=== PATIENT | female | born 1940 | race African-American/Black ===

== ENCOUNTER 2016-06-14 12:03 | Inpatient (IN) | payer MEDICARE, MEDICAID ==
[~2016-06-14] VITALS: Ht 142.2 cm; Wt 54.4 kg
[~2016-06-14 12:03] MED LIST: AMLO5TAB4 PO; LISI40TA4 PO
[2016-06-14] MEDS ORDERED: HYDRALAZINE 20MG/ML VIAL IV ONE (14:00)
[2016-06-14 14:21] LABS: BASOPHILS % 0.7 % (0.0-2.0); EOSINOPHILS % 0.8 % (0.0-5.0); HEMATOCRIT. 41.1 % (36.0-48.0); LYMPHOCYTES % 29.7 % (20.0-50.0); MEAN CORPUSCULAR HEMOGLOBIN 29.6 pg (28.0-32.0); MEAN PLATELET VOLUME 8.7 fl (7.4-10.4); MONOCYTES % 9.3 % (2.0-8.0); NEUTROPHILS % 59.5 % (40.0-76.0); PLATELET 141 x1000/uL (130-400); RED BLOOD CELL COUNT 4.73 mill/uL (4.2-5.4); WHITE BLOOD COUNT 4.9 x1000/uL (4.5-11.0)
[2016-06-14] MEDS ORDERED: ERYTHROMYCIN BASE 0.5% OPHTH OINT 3.5GM BOTHEYE ONE (14:30)
[2016-06-14 14:32] LABS: PROTHROMBIN TIME 10.8 sec
[2016-06-14 14:38] LABS: ALANINE AMINOTRANSFERASE 17 IU/L (13-61); ALBUMIN 3.8 g/dL (3.4-5.0); ANION GAP 10; CALCIUM 9.6 mg/dL (8.5-10.1); CARBON DIOXIDE 30 mEq/L (21-32); CHLORIDE 109 mEq/L (98-107); INDEX HEMOLYSI 1 (1-3); INDEX ICTERIC 1 (1-4); INDEX LIPEMIC 1 (1-3); NT PRO B-TYPE NATRIURETIC PEP 289 pg/mL (5-125); TROPONIN I 0.14 ng/mL (0.00-0.04); UREA NITROGEN BLOOD 15 mg/dL (7-21); eGFR > 60 mL/min (>60)
[2016-06-14 21:00] VITALS: BP 167/86
[2016-06-14 22:00] VITALS: BP 167/68
[2016-06-14] MEDS ORDERED: CLONIDINE 0.1MG TABLET PO NR (22:15)
[2016-06-15] VITALS (15 sets, daily range): BP systolic 83–156; BP diastolic 50–129
[2016-06-15] MEDS ORDERED: CLONIDINE 0.2MG TABLET PO NR (00:45)
[2016-06-15] MEDS ORDERED: BENAZEPRIL 5MG TABLET PO NR (00:45)
[2016-06-15] MEDS ORDERED: HYDRALAZINE HCL 50MG TABLET PO NR (00:45)
[2016-06-15] MEDS: AMLODIPINE 5MG TABLET PO SCH ×3 (01:41→21:00)
[2016-06-15] MEDS: CLONIDINE 0.2MG TABLET PO SCH ×3 (01:42→17:11)
[2016-06-15] MEDS ORDERED: HYDRALAZINE HCL 50MG TABLET PO SCH (06:00)
[2016-06-15] MEDS: BENAZEPRIL 5MG TABLET PO SCH ×2 (09:00→17:11)
[2016-06-15 10:09] LABS: CHLORIDE 109 mEq/L (98-107); INDEX HEMOLYSI 1 (1-3); INDEX ICTERIC 1 (1-4); INDEX LIPEMIC 1 (1-3)
[2016-06-15 10:10] LABS: HEMATOCRIT 38.6 % (36.0-48.0); HEMOGLOBIN 13.2 g/dL (12.0-16.0); MEAN CORPUSCULAR HEMOGLOBIN 29.6 pg (28.0-32.0); MEAN CORPUSCULAR HGB CONC 34.1 g/dL (31.0-37.0); MEAN CORPUSCULAR VOLUME 86.7 fL (81.0-99.0); PLATELET 141 x1000/uL (130-400); RED BLOOD CELL COUNT 4.46 mill/uL (4.2-5.4); RED CELL DISTRIBUTION WIDTH 14.1 % (11.6-14.6); WHITE BLOOD COUNT 4.9 x1000/uL (4.5-11.0)
[2016-06-15 10:15] LABS: ANION GAP 12; CARBON DIOXIDE 26 mEq/L (21-32); UREA NITROGEN BLOOD 19 mg/dL (7-21); eGFR > 60 mL/min (>60)
[2016-06-15] MEDS: ACETAMINOPHEN 325MG TABLET PO PRN (11:56)
[2016-06-16] VITALS (10 sets, daily range): BP systolic 98–157; BP diastolic 46–90
[2016-06-16 07:16] LABS: CALCIUM 9.1 mg/dL (8.5-10.1)
[2016-06-16 07:38] LABS: HEMATOCRIT 36.6 % (36.0-48.0); HEMOGLOBIN 12.4 g/dL (12.0-16.0); MEAN CORPUSCULAR HEMOGLOBIN 29.5 pg (28.0-32.0); MEAN CORPUSCULAR HGB CONC 33.8 g/dL (31.0-37.0); MEAN CORPUSCULAR VOLUME 87.1 fL (81.0-99.0); PLATELET 138 x1000/uL (130-400); RED CELL DISTRIBUTION WIDTH 14.1 % (11.6-14.6); WHITE BLOOD COUNT 4.3 x1000/uL (4.5-11.0)
[2016-06-16] MEDS: CLONIDINE 0.2MG TABLET PO SCH ×2 (08:55→09:00)
[2016-06-16] MEDS: BENAZEPRIL 5MG TABLET PO SCH (08:55)
[2016-06-16] MEDS: AMLODIPINE 5MG TABLET PO SCH (08:56)
[2016-06-16] MEDS: ACETAMINOPHEN 325MG TABLET PO PRN (09:31)
== END 2016-06-16 16:20 | disposition home health service (06) | DRG 305 ==
LOC: ER 13:11 → 3WST 17:14
PROVIDERS: ADMIT Internal Medicine; ATTEND Internal Medicine
DX: I16.1 Hypertensive emergency (principal); I67.4 Hypertensive encephalopathy; I24.9 Acute ischemic heart disease, unspecified; L51.1 Stevens-Johnson syndrome; I10 Essential (primary) hypertension; H26.9 Unspecified cataract; H54.0 Blindness, both eyes; F32.9 Major depressive disorder, single episode, unspecified; Z94.7 Corneal transplant status; Z88.6 Allergy status to analgesic agent; Z88.1 Allergy status to other antibiotic agents; Z88.8 Allergy status to other drugs, medicaments and biological substances; Z90.49 Acquired absence of other specified parts of digestive tract; Z90.710 Acquired absence of both cervix and uterus; Z91.14 Patient's other noncompliance with medication regimen; Z86.73 Personal history of transient ischemic attack (TIA), and cerebral infarction without residual deficits
CPT/HCPCS: 36415; 70450; 71010; 80048; 80053; 83880; 84484; 85025; 85027; 85610; 93005; 96374; 99285; J0360

== ENCOUNTER 2018-12-25 21:10 | Emergency (ER) | payer MEDICARE, MEDICAID ==
[~2018-12-25] VITALS: Ht 152.4 cm; Wt 64.0 kg
[~2018-12-25 21:10] MED LIST changes: -LISI40TA4 PO; +MULT-1146 PO
[2018-12-25] MEDS ORDERED: SODIUM CHLORIDE 0.9% 1,000 ML IV ONE (23:06)
[2018-12-25] MEDS ORDERED: KETOROLAC 15MG/ML VIAL IV ONE (23:15)
[2018-12-25 23:33] LABS: CHLORIDE 110 mEq/L (98-107)
[2018-12-25 23:35] LABS: BASOPHILS % 0.7 % (0.0-2.0); EOSINOPHILS % 2.6 % (0.0-5.0); HEMATOCRIT. 40.7 % (36.0-48.0); HEMOGLOBIN. 13.9 g/dL (12.0-16.0); LYMPHOCYTES % 29.9 % (20.0-50.0); MEAN CORPUSCULAR HEMOGLOBIN 29.2 pg (28.0-32.0); MEAN CORPUSCULAR VOLUME 85.4 fL (81.0-99.0); MEAN PLATELET VOLUME 8.7 fl (7.4-10.4); NEUTROPHILS % 53.8 % (40.0-76.0); PLATELET 217 x1000/uL (130-400); RED BLOOD CELL COUNT 4.76 mill/uL (4.2-5.4); RED CELL DISTRIBUTION WIDTH 15.1 % (11.6-14.6)
[2018-12-26 07:05] VITALS: BP 124/77
== END 2018-12-26 07:08 ==
LOC: ER 21:10
DX: R05 Cough (principal); R07.89 Other chest pain; J44.9 Chronic obstructive pulmonary disease, unspecified; M19.90 Unspecified osteoarthritis, unspecified site; F32.9 Major depressive disorder, single episode, unspecified; I10 Essential (primary) hypertension; L51.1 Stevens-Johnson syndrome; Z86.73 Personal history of transient ischemic attack (TIA), and cerebral infarction without residual deficits; Z88.6 Allergy status to analgesic agent; Z88.8 Allergy status to other drugs, medicaments and biological substances
CPT/HCPCS: 36415; 71045; 71250; 80053; 83605; 83880; 84484; 85025; 87040; 93005; 96374; 99284; J1885; J7030

== ENCOUNTER 2019-01-31 22:08 | Emergency (ER) | payer MEDICARE, MEDICAID ==
[~2019-01-31] VITALS: Ht 152.4 cm; Wt 63.2 kg
[2019-01-31] MEDS ORDERED: VISCOUS LIDOCAINE 2% 15 ML UDC MM STA (23:23)
[2019-01-31] MEDS ORDERED: BENZONATATE 200MG CAPSULE PO ONE (23:30)
[2019-02-01 04:57] VITALS: BP 142/82
== END 2019-02-01 05:00 | disposition home or self-care (01) ==
LOC: ER 22:08
DX: M79.10 Myalgia, unspecified site (principal); R05 Cough; I10 Essential (primary) hypertension; L51.1 Stevens-Johnson syndrome; H54.62 Unqualified visual loss, left eye, normal vision right eye; Z88.6 Allergy status to analgesic agent
CPT/HCPCS: 71045; 99283

== ENCOUNTER 2019-04-04 18:23 | Inpatient (IN) | payer MEDICARE, MEDICAID ==
[~2019-04-04] VITALS: Ht 157.5 cm; Wt 71.2 kg
[2019-04-04] MEDS ORDERED: AZITHROMYCIN 500 MG in DEXT 5% WATER 250 ML IV SCH (19:00)
[2019-04-04] MEDS ORDERED: CEFTRIAXONE 1 G PREMIX 50 ML IV ONE (19:00)
[2019-04-04] MEDS ORDERED: METHYLPREDNISOLONE SOD SUCC 125 MG/2 ML VIAL IV STA (19:00)
[2019-04-04] MEDS ORDERED: IPRATROPIUM/ALBUTEROL 0.5-3(2.5)MG/3ML NEB HHN ONE (19:00)
[2019-04-04 19:42] LABS: CHLORIDE 110 mEq/L (98-107)
[2019-04-04 19:43] LABS: BASOPHILS % 0.8 % (0.0-2.0); EOSINOPHILS % 2.2 % (0.0-5.0); HEMATOCRIT. 39.8 % (36.0-48.0); HEMOGLOBIN. 13.4 g/dL (12.0-16.0); LYMPHOCYTES % 34.8 % (20.0-50.0); MEAN CORPUSCULAR HEMOGLOBIN 28.8 pg (28.0-32.0); MEAN CORPUSCULAR VOLUME 85.4 fL (81.0-99.0); MEAN PLATELET VOLUME 8.5 fl (7.4-10.4); MONOCYTES % 13.4 % (2.0-8.0); NEUTROPHILS % 48.8 % (40.0-76.0); PLATELET 186 x1000/uL (130-400); RED BLOOD CELL COUNT 4.66 mill/uL (4.2-5.4); RED CELL DISTRIBUTION WIDTH 15.2 % (11.6-14.6)
[2019-04-04 19:49] LABS: PARTIAL THROMBOPLASTIN TIME 27.1 sec (23.4-31.0); PROTHROMBIN TIME 10.4 sec (9.6-11.0)
[2019-04-04] MEDS ORDERED: ONDANSETRON HCL 4MG/2ML INJ IV ONE (22:15)
[2019-04-04] MEDS ORDERED: MORPHINE SULFATE 2 MG/ML CPJ (NOT FOR IM USE) IV ONE (22:15)
[2019-04-04 22:21] LABS: CLARITY URINE CLEAR (CLEAR); COLOR URINE YELLOW (YELLOW); KETONES URINE NEGATIVE (NEGATIVE); LEUKOCYTE ESTERASE URINE NEGATIVE (NEGATIVE); NITRITE URINE NEGATIVE (NEGATIVE); OCCULT BLOOD URINE NEGATIVE (NEGATIVE); PH URINE 5.5 (4.5-8.0); PROTEIN URINE NEGATIVE (NEGATIVE); UROBILINOGEN URINE 0.2 E.U./dL (0.2-1.0)
[2019-04-04 23:45] VITALS: BP 149/86
[2019-04-05] MEDS ORDERED: CEFTRIAXONE 1 G PREMIX 50 ML IV SCH (00:30)
[2019-04-05] MEDS ORDERED: PROMETHAZINE/DEXTROMETHORPHAN 6.25-15MG/5ML BOTTLE 120ML PO PRN (00:30)
[2019-04-05] MEDS ORDERED: DIPHENHYDRAMINE 25MG CAPSULE PO PRN (00:30)
[2019-04-05] MEDS ORDERED: HYDR-4134 PO (01:09)
[2019-04-05] MEDS ORDERED: D-ME473S8 MT (01:09)
[2019-04-05] MEDS ORDERED: CHOL100034 PO (01:14)
[2019-04-05] MEDS ORDERED: IBUP-2029 PO (01:14)
[2019-04-05] MEDS ORDERED: BENZ1LOZ60 MM (01:14)
[2019-04-05] MEDS ORDERED: CIPHCO EACH EAR (01:14)
[2019-04-05] MEDS ORDERED: TOPUD PO (01:14)
[2019-04-05] MEDS ORDERED: POTASSIUM CHLORIDE 20MEQ TABLET SR PO NR (02:00)
[2019-04-05 04:00] VITALS: BP 119/74
[2019-04-05] MEDS: IPRATROPIUM/ALBUTEROL 0.5-3(2.5)MG/3ML NEB HHN SCH ×5 (05:12→21:29)
[2019-04-05] MEDS: BENZONATATE 200MG CAPSULE PO SCH ×3 (05:16→21:09)
[2019-04-05] MEDS: METHYLPREDNISOLONE SOD SUCC 40 MG/ML VIAL IV SCH ×3 (05:16→21:09)
[2019-04-05 05:31] LABS: HEMATOCRIT 40.1 % (36.0-48.0); HEMOGLOBIN 13.4 g/dL (12.0-16.0); MEAN CORPUSCULAR HEMOGLOBIN 28.6 pg (28.0-32.0); MEAN CORPUSCULAR VOLUME 85.7 fL (81.0-99.0); PLATELET 194 x1000/uL (130-400); RED BLOOD CELL COUNT 4.68 mill/uL (4.2-5.4); RED CELL DISTRIBUTION WIDTH 14.7 % (11.6-14.6)
[2019-04-05 05:42] LABS: CHLORIDE 110 mEq/L (98-107)
[2019-04-05 05:57] LABS: CREATINE KINASE MB FRACTION 1.6 ng/mL (0.5-3.6)
[2019-04-05 08:00] VITALS: BP 138/92
[2019-04-05] MEDS: CHOLECALCIFEROL (D3) 1000 UNIT TABLET PO SCH (08:44)
[2019-04-05] MEDS: POTASSIUM CHLORIDE 20MEQ TABLET SR PO SCH ×3 (08:44→16:51)
[2019-04-05] MEDS: ENOXAPARIN 40MG/0.4ML SYR SUBCUT SCH (08:45)
[2019-04-05] MEDS: AMLODIPINE 10MG TABLET PO SCH (08:45)
[2019-04-05 12:00] VITALS: BP 116/63
[2019-04-05 14:12] LABS: CREATINE KINASE MB FRACTION 2.1 ng/mL (0.5-3.6)
[2019-04-05 16:00] VITALS: BP 124/81
[2019-04-05] MEDS: ACETAMINOPHEN 325MG TABLET PO PRN (16:51)
[2019-04-05 19:44] LABS: CREATINE KINASE MB FRACTION 2.1 ng/mL (0.5-3.6)
[2019-04-05 20:00] VITALS: BP 133/84
[2019-04-05] MEDS: CEFTRIAXONE 1 G PREMIX 50 ML IV SCH (21:08)
[2019-04-06] VITALS: BP 128/70
[2019-04-06 04:00] VITALS: BP 134/88
[2019-04-06] MEDS: IPRATROPIUM/ALBUTEROL 0.5-3(2.5)MG/3ML NEB HHN SCH ×6 (04:34→21:03)
[2019-04-06] MEDS: BENZONATATE 200MG CAPSULE PO SCH ×3 (05:38→22:41)
[2019-04-06] MEDS: METHYLPREDNISOLONE SOD SUCC 40 MG/ML VIAL IV SCH ×2 (05:38→13:14)
[2019-04-06 07:03] LABS: CHLORIDE 112 mEq/L (98-107)
[2019-04-06 07:14] LABS: HEMATOCRIT 36.7 % (36.0-48.0); HEMOGLOBIN 12.3 g/dL (12.0-16.0); MEAN CORPUSCULAR HEMOGLOBIN 28.7 pg (28.0-32.0); MEAN CORPUSCULAR VOLUME 85.8 fL (81.0-99.0); PLATELET 191 x1000/uL (130-400); RED BLOOD CELL COUNT 4.28 mill/uL (4.2-5.4); RED CELL DISTRIBUTION WIDTH 15.1 % (11.6-14.6)
[2019-04-06 08:00] VITALS: BP_SYST 135; BP_SYST 145; BP_DIAS 92
[2019-04-06] MEDS: CHOLECALCIFEROL (D3) 1000 UNIT TABLET PO SCH (08:21)
[2019-04-06] MEDS: AMLODIPINE 10MG TABLET PO SCH (08:22)
[2019-04-06] MEDS: ENOXAPARIN 40MG/0.4ML SYR SUBCUT SCH (09:00)
[2019-04-06 12:00] VITALS: BP 135/90
[2019-04-06] MEDS: ACETAMINOPHEN 325MG TABLET PO PRN (13:14)
[2019-04-06 16:00] VITALS: BP 141/90
[2019-04-06] MEDS: POLYVINYL ALCOHOL OPHTH DROPS 15ML BOTHEYE PRN (17:13)
[2019-04-06 20:00] VITALS: BP 150/88
[2019-04-06] MEDS: CEFTRIAXONE 1 G PREMIX 50 ML IV SCH (22:41)
[2019-04-07] VITALS: BP 140/66
[2019-04-07] MEDS: METHYLPREDNISOLONE SOD SUCC 40 MG/ML VIAL IV SCH ×2 (00:21→06:04)
[2019-04-07] MEDS: IPRATROPIUM/ALBUTEROL 0.5-3(2.5)MG/3ML NEB HHN SCH ×6 (01:15→20:23)
[2019-04-07 04:00] VITALS: BP 142/89
[2019-04-07] MEDS: BENZONATATE 200MG CAPSULE PO SCH ×3 (06:04→21:03)
[2019-04-07 08:00] VITALS: BP 151/91
[2019-04-07 08:12] LABS: HEMATOCRIT. 38.4 % (36.0-48.0); HEMOGLOBIN. 12.8 g/dL (12.0-16.0); MEAN CORPUSCULAR HEMOGLOBIN 28.5 pg (28.0-32.0); MEAN CORPUSCULAR VOLUME 85.4 fL (81.0-99.0); MEAN PLATELET VOLUME 8.7 fl (7.4-10.4); PLATELET 201 x1000/uL (130-400); RED CELL DISTRIBUTION WIDTH 15.4 % (11.6-14.6)
[2019-04-07 08:33] LABS: CHLORIDE 108 mEq/L (98-107)
[2019-04-07] MEDS: CHOLECALCIFEROL (D3) 1000 UNIT TABLET PO SCH (08:47)
[2019-04-07] MEDS: AMLODIPINE 10MG TABLET PO SCH (08:47)
[2019-04-07] MEDS: ENOXAPARIN 40MG/0.4ML SYR SUBCUT SCH (08:48)
[2019-04-07 12:00] VITALS: BP 134/92
[2019-04-07 14:05] LABS: PLATELET ESTIMATE NORMAL
[2019-04-07] MEDS: ACETAMINOPHEN 325MG TABLET PO PRN (14:35)
[2019-04-07 16:00] VITALS: BP 138/85
[2019-04-07] MEDS: PREDNISONE 20MG TABLET PO SCH (16:31)
[2019-04-07 20:00] VITALS: BP 138/74
[2019-04-07] MEDS: CEFTRIAXONE 1 G PREMIX 50 ML IV SCH (21:03)
[2019-04-08] VITALS: BP 140/95
[2019-04-08] MEDS: IPRATROPIUM/ALBUTEROL 0.5-3(2.5)MG/3ML NEB HHN SCH ×6 (00:42→21:11)
[2019-04-08 04:00] VITALS: BP 138/88
[2019-04-08] MEDS: BENZONATATE 200MG CAPSULE PO SCH ×3 (06:14→21:09)
[2019-04-08 08:00] VITALS: BP 129/92
[2019-04-08] MEDS: ENOXAPARIN 40MG/0.4ML SYR SUBCUT SCH (09:00)
[2019-04-08] MEDS: CHOLECALCIFEROL (D3) 1000 UNIT TABLET PO SCH (09:04)
[2019-04-08] MEDS: AMLODIPINE 10MG TABLET PO SCH (09:04)
[2019-04-08] MEDS: PREDNISONE 20MG TABLET PO SCH ×2 (09:04→17:12)
[2019-04-08 12:00] VITALS: BP 148/92
[2019-04-08] MEDS: POLYVINYL ALCOHOL OPHTH DROPS 15ML BOTHEYE PRN (13:00)
[2019-04-08 16:00] VITALS: BP 145/91
[2019-04-08 20:00] VITALS: BP 121/85
[2019-04-08] MEDS: CEFTRIAXONE 1 G PREMIX 50 ML IV SCH (21:09)
[2019-04-09] VITALS: BP 127/85
[2019-04-09] MEDS: IPRATROPIUM/ALBUTEROL 0.5-3(2.5)MG/3ML NEB HHN SCH ×5 (00:19→16:45)
[2019-04-09 04:00] VITALS: BP 148/95
[2019-04-09] MEDS: BENZONATATE 200MG CAPSULE PO SCH ×2 (06:21→12:42)
[2019-04-09] MEDS: ACETAMINOPHEN 325MG TABLET PO PRN (06:29)
[2019-04-09 08:00] VITALS: BP 137/89
[2019-04-09] MEDS: ENOXAPARIN 40MG/0.4ML SYR SUBCUT SCH (09:00)
[2019-04-09] MEDS: AMLODIPINE 10MG TABLET PO SCH (09:18)
[2019-04-09] MEDS: PREDNISONE 20MG TABLET PO SCH (09:19)
[2019-04-09] MEDS: CHOLECALCIFEROL (D3) 1000 UNIT TABLET PO SCH (09:19)
[2019-04-09 12:00] VITALS: BP 137/76
[2019-04-09] MEDS ORDERED: PRED5TAB MT (15:35)
[2019-04-09 15:53] VITALS: BP 137/76
[2019-04-09 16:00] VITALS: BP 122/65
[2019-04-10] MEDS ORDERED: PREDNISONE 5MG TABLET PO SCH (09:00)
== END 2019-04-09 19:12 | DRG 192 ==
LOC: EDBEDREQ 19:11 → ER 19:38 → 8WST 20:51 → EDBEDREQTM 21:05 → EDBEDREQ 21:05 → ENRESERV 21:40
PROVIDERS: ADMIT Internal Medicine; ATTEND Internal Medicine
DX: J44.1 Chronic obstructive pulmonary disease with (acute) exacerbation (principal); J06.9 Acute upper respiratory infection, unspecified; I71.2 Thoracic aortic aneurysm, without rupture; H54.3 Unqualified visual loss, both eyes; E66.9 Obesity, unspecified; I10 Essential (primary) hypertension; F32.9 Major depressive disorder, single episode, unspecified; M19.90 Unspecified osteoarthritis, unspecified site; Z77.22 Contact with and (suspected) exposure to environmental tobacco smoke (acute) (chronic); Z86.73 Personal history of transient ischemic attack (TIA), and cerebral infarction without residual deficits; Z88.5 Allergy status to narcotic agent; Z88.6 Allergy status to analgesic agent; Z88.1 Allergy status to other antibiotic agents; Z88.8 Allergy status to other drugs, medicaments and biological substances; Z79.899 Other long term (current) drug therapy; Z68.28 Body mass index [BMI] 28.0-28.9, adult
CPT/HCPCS: 36415; 71045; 71046; 71250; 78582; 80048; 80053; 81003; 82550; 82553; 83605; 83880; 84484; 85025; 85027; 93005; 93306; 93970; 94640; 96365; 96375; 97116; 97162; 97165; 97535; 99285; A9558; C1893; J0456; J0696; J1650; J2270; J2405; J2920; J2930; J7060; J7512; J7620

== ENCOUNTER 2022-07-21 11:10 | Emergency (ER) | payer MEDICARE, MEDICAID ==
[~2022-07-21] VITALS: Ht 152.4 cm; Wt 64.0 kg
[~2022-07-21 11:10] MED LIST changes: -MULT-1146 PO; +POLY15DR31 EACHEYE
[2022-07-21] MEDS ORDERED: FLUORESCEIN SODIUM 1MG/STRIP BOTHEYE ONE (14:15)
[2022-07-21] MEDS ORDERED: TETRACAINE 0.5% OPHTH DROPS 4ML BOTHEYE ONE (14:15)
[2022-07-21] MEDS ORDERED: ACYCLOVIR 400 MG TABLET PO ONE (18:45)
[2022-07-21] MEDS ORDERED: CIPR2.5D13 EACHEYE (19:30)
[2022-07-21] MEDS ORDERED: ACYC200C31 MT (19:30)
[2022-07-21] MEDS ORDERED: POLYMYXIN B SULFATE/TMP 10ML BOTTLE BOTHEYE SCH (21:30)
[2022-07-21] MEDS ORDERED: GENT5DRO5 EACHEYE (21:31)
[2022-07-21] MEDS ORDERED: GENTAMICIN 0.3% OPHTH DROPS 5ML BOTHEYE ONE (22:30)
[2022-07-21] MEDS ORDERED: IBUPROFEN 600MG TABLET PO ONE (22:30)
[2022-07-22] MEDS ORDERED: IBUPROFEN 600MG TABLET PO NR (00:30)
[2022-07-22 06:00] VITALS: BP 118/78
== END 2022-07-22 09:22 | disposition home or self-care (01) ==
LOC: ER 11:10
DX: B02.30 Zoster ocular disease, unspecified (principal); M19.90 Unspecified osteoarthritis, unspecified site; F32.A Depression, unspecified; I10 Essential (primary) hypertension; Z86.73 Personal history of transient ischemic attack (TIA), and cerebral infarction without residual deficits; Z88.5 Allergy status to narcotic agent; Z88.6 Allergy status to analgesic agent
CPT/HCPCS: 70486; 93970; 99285